=== PATIENT | female | born 1985 | race Two or more races ===

== ENCOUNTER 2016-12-18 20:05 | Inpatient (IN) | payer OTHER ==
[2016-12-18 20:28] VITALS: BMI 26.6
[2016-12-18 22:55] LABS: BASO % 0.2 % (0.0-2.0); EOS # 0.1 K/uL (0.0-0.7); EOS % 0.8 % (0.0-4.0); HEMATOCRIT 35.6 % (34.0-47.0); LYMPH # 1.8 K/uL (1.0-4.3); LYMPH % 15.9 % (20.0-40.0); MEAN CELL VOLUME 98.8 fl (81.0-99.0); MEAN CORPUSCULAR HEMOGLOBIN 33.2 pg (27.0-31.0); MEAN CORPUSCULAR HGB CONC 33.6 g/dL (33.0-37.0); MEAN PLATELET VOLUME 10.4 fl (7.2-11.7); MONO # 0.7 K/uL (0.0-0.8); MONO % 6.5 % (0.0-10.0); NEUT # 8.6 K/uL (1.8-7.0); NEUT % 76.6 % (50.0-75.0); NRBC % 0.1 % (0.0-0.0); RED CELL DISTRIBUTION WIDTH 13.4 % (11.5-14.5); WHITE BLOOD COUNT 11.3 K/uL (4.8-10.8)
[2016-12-18 23:21] VITALS: BP 121/68; PULSE 74; RESP 18; TEMP 97.7; O2SAT 100
--- NOTE | 2016-12-19 04:33 | OBHP ---
Datetime: 12/18/2016 21:00 IP Adm Impression: Term, intrauterine IP Admit Plan: Admit to unit; Initiate labor induction protocol Admit Comment, IP Provider: 31 yr at 40.1 wks GA presents to [facility] for IOL as recommended by MFM (see risk factors below). Denies vaginal bleeding, LOF, ctx's. + movements. Routine c are with Dr. Rincon. Patient has birthplan (please see chart), denies concerns or complaints at this jairo e. care/course: + Chlamydia (treated 04/2016); + Lyme disease (treated 08/2016), Pityriasis R osea, spouse had shingles (Oct 2015), Influenza vaccine given, GBS neg, Gc/Ch neg/neg, HepBsAg neg, H IV neg, Rubella IgG positive, RPR neg, MFM Wellbeing Assessment 12/12/16: BPP 8/8, recommend del cristian by EDC. Growth US 11/29/16: EFW 7lbs 0 oz. OBHx: none PMHx: none SocHx: denies Etoh, smoking drugs SurgHx: b/l foot wart removal Meds: none Allergies: NKDA PE: VSS, patient in no acute distress Cardiac: S1 S2 normal, no murmurs/rubs or gallops Lungs: CTABL Abd: gravid, nontender Ext: no edema Monitoring: FHR 120bpm, moderate variability 6-25bpm, accelerations 15x15, no decels A: IUP at 40.1 wks GA, IOL as recommended by MFM P: -Admit to labor and delivery -IV insertion, CBC, Type and Screen -Initiate induction of labor protocol -Continuous monitoring -Monitor labor progress Richelle Smith M.D. PGY1 OB Hospitalist note: This pt was seen and examined by me. Agree with above note. MAHNDO Pelvic Type - PN: Not Done Extremities - PN: Normal Abdomen - PN: Normal Back - PN: Normal Breast - PN: Not Done Lungs - PN: Normal Heart - PN: Normal Thyroid - PN: Normal Neurologic - PN: Normal HEENT - PN: Normal General - PN: Normal Presentation-Admit: Vertex FHR - Baseline A Provider: 120 Membranes, Provider: Intact Contraction Comments Provider: + Comments, ACOG Physical Exam: ROS: General: no weakness; no fatigue HEENT: no ALBERT; no visual dist CV: no palpitations; no no CP GI: noN/V no diarhea No epigastric pain; non radiating : no F/U/D MS: No joint pain Gestation - Est Wks by US: 40.1 Pool Provider: Negative IP Hx Assessment: The History has been Reviewed and is Current EGA AdmitDate IP: 40.1 Vital Signs Provider: Reviewed; Within Normal Limits IP Chief Complaint: Scheduled induction of labor NICHD Variability Prov Fetus A: Moderate 6-25bpm NICHD Accel Fetus A IP Provider: 15X15 FHR Category Provider Fetus A: Category I NICHD Decel Fetus A IP Provider: None Dilatation, Provider: 0 Effacement, Provider: 0 Station, Provider: high DTRs - PN: Normal
[2016-12-19] MEDS: Lactated Ringer's 1,000 ML IV SCH (08:05)
[2016-12-19] MEDS ORDERED: Dextrose 5%/Lactated Ringer's 1,000 ML IV SCH (22:30)
[2016-12-19] MEDS ORDERED: Oxytocin 30 units/LR 500ML 500 ML IV ONE (23:49)
[2016-12-20] MEDS ORDERED: Bupivacaine HCl 0.25% PF (10 ml) Inj ONE ×2 (01:51→13:40)
[2016-12-20] MEDS ORDERED: Fentanyl/Bupivacaine HCl 250 ML EPI ONE (01:51)
--- NOTE | 2016-12-20 08:25 | OBPN ---
Datetime: 12/20/2016 06:33 Membranes, Provider: Ruptured Amniotic Fluid Color, Provider: Clear Contraction Comments Provider: q4-5 FHR - Baseline A Provider: 130 IP Progress Note Comment: s: comfortable with epidural p: arom. expectant vd Vital Signs Provider: Within Normal Limits FHR Category Provider Fetus A: Category I NICHD Variability Prov Fetus A: Moderate 6-25bpm Dilatation, Provider: 4-5 Effacement, Provider: 100 Station, Provider: -1 NICHD Decel Fetus A IP Provider: None Datetime: 12/19/2016 08:49 IP Progress Impression: Reassuring heart rate IP Informed Consent Obtain: Induction of Labor IP Progress Plan: Induction; Cervical Ripening Presentation-Admit: Vertex NICHD Accel Fetus A IP Provider: 15X15 Datetime: 12/18/2016 21:00 Pool Provider: Negative Gestation - Est Wks by US: 40.1
[2016-12-20] MEDS: Lactated Ringer's 1,000 ML IV SCH (08:41)
[2016-12-20] MEDS ORDERED: Lactated Ringer's 1,000 ML IV SCH ×2 (13:15→14:18)
[2016-12-20] MEDS ORDERED: Lidocaine 2% PF (10 ml) Amp ONE ×2 (13:45→15:44)
[2016-12-20] MEDS ORDERED: EPINEPHrine 1 mg/ml (1:1000) Inj ONE (13:46)
[2016-12-20] MEDS ORDERED: ePHEDrine 50 mg/ml Inj ONE (14:06)
[2016-12-20] MEDS ORDERED: Phenylephrine 10 mg/ml Inj ONE (14:06)
--- NOTE | 2016-12-20 15:23 | OBPN ---
Datetime: 12/20/2016 15:17 IP Progress Impression: Arrest of dilatation/descent IP Informed Consent Obtain: Section Delivery; Risks, Benefits and Alternatives Discussed IP Procedures: Sterile Vag Exam IP Progress Plan: Deliver- Section Membranes, Provider: Ruptured Amniotic Fluid Color, Provider: Meconium, Light Contraction Comments Provider: Q3-4 FHR - Baseline A Provider: 140 IP Progress Note Comment: 31 yo G1 at 40+3 wks w/ arrest of descent at -1 station Discussed w/ pt and her Consents signed. All questions answered. NICHD Accel Fetus A IP Provider: 15X15 NICHD Variability Prov Fetus A: Moderate 6-25bpm Dilatation, Provider: 10 Effacement, Provider: 100 Station, Provider: -1 NICHD Decel Fetus A IP Provider: None
[2016-12-20] MEDS ORDERED: Morphine 1 mg/ml preservative-free Inj(Duramorph) ONE (15:44)
[2016-12-20] MEDS ORDERED: Oxytocin 30 units/LR 500ML 500 ML IV ONE (15:47)
[2016-12-20] MEDS ORDERED: Oxycodone/Acetaminophen 5/325 mg Tab PO PRN ×2 (16:46→17:03)
--- NOTE | 2016-12-20 17:00 | OBDS ---
DELIVERY PERSONNEL Delivery Doctor: Jean-Claude Baker MD Construction Pit Worker: Wily Ray RN Anesthesiologist: Bobby Medel MD MATERNAL INFORMATION Delivery Anesthesia: Epidural Provider Comments: Pre-op dx: 31 yo G1 at 40+3 wks w/ arrest of descent at -1 station Post-op dx: Same Procedure: Primary low transverse section Surgeon: Olivia Assistant Curator: Dr. Rodriguez, the hospitalist Anesthesiologist: Dr. Campbell Anesthesia: Epidural Findings: Viable male delivered through thin meconium at 15:33. Apgars 9 and 9. Wt 4070 gm s, 9lbs. Nl appearing uterus, tubes, and ovaries. LABOR SUMMARY EDC: 12/17/2016 00:00 No. Babies in Womb: 1 Attempted: No Labor Anesthesia: Epidural LABOR INFORMATION Reason for Induction: Postterm Onset of Labor: 12/19/2016 17:00 Complete Dilatation: 12/20/2016 08:47 Cervical Ripening Agents: Cytotec @ Oxytocin: Augmentation Group B Beta Strep: Negative Antibiotics # of Doses: ancef one dose Antibiotics Time of Last Dose: 15:15 ancef 2grams Steroids Given: None Reason Steroids Not Administered: Not Applicable MEMBRANES Membranes Rupture Method: Artificial Rupture of Membranes: 12/20/2016 05:20 Amniotic Fluid Color: Clear Amniotic Fluid Amount: Moderate Amniotic Fluid Odor: Normal STAGES OF LABOR Stage 1 hrs: 15 Stage 1 min: 47 CSECTION DELIVERY CSection Urgency: Elective CSection Incidence: Primary Labor: Labor Elective: Elective CSection Incision: Lower Uterine Transverse BABY A INFORMATION Born in Route : No : N/A PRESENTATION/POSITION BABY A Presentation: Cephalic INFANT INFORMATION BABY A Gestational Age at Delivery: 40.3 IDENTIFICATION/MEDS BABY A ID Band Number: [id number]
--- NOTE | 2016-12-20 17:44 | OP ---
PROCEDURE DATE: 12/20/2016 PREOPERATIVE DIAGNOSIS: This is a 31-year-old G1 at 40 weeks and 3 days with arrest of descent at -1 station. POSTOPERATIVE DIAGNOSIS: This is a 31-year-old G1 at 40 weeks and 3 days with arrest of descent at -1 station. PROCEDURE: Primary low transverse section. SURGEON: Alejo Baker MD REGULATORY AFFAIRS SPECIALIST: Dr. Rodriguez, the hospitalist. Dr. Rodriguez was the surgical endoscopist and participated in the surgery for the entire duration of the case. He helped create exposure. He also helped maintain hemostasis, operated throughout the case on the side of the patient that was across from him and assisted in the delivery of the by applying fundal pressure. This case could not have been completed without his assistance. ANESTHESIOLOGIST: Dr. Campbell ANESTHESIA: Epidural. FINDINGS: Viable male infant delivered through thin meconium at 1533. Apgars 9 and 9 at 1 and 5 minutes respectively. The weight was 4070 grams or 9 pounds. Normal appearing uterus, tubes and ovaries. ESTIMATED BLOOD LOSS: About 700 mL. COMPLICATIONS: None. DESCRIPTION OF PROCEDURE: The patient was taken to the operating room where the epidural anesthesia was bolused. She was prepped and draped in the normal sterile fashion in the dorsal supine position with a leftward tilt. The time- out was done. The epidural was tested and found to be adequate. A Pfannenstiel skin incision was then made with the scalpel and carried through to the underlying layer of fascia with the Bovie. The fascia was incised in the midline. The incision was extended laterally with the Bovie over a Chani. The inferior aspect of the fascial incision was then grasped with the Magalie clamps, elevated, and the underlying rectus muscles dissected off bluntly and with the Bovie. Attention was then turned to the superior aspect of this incision, which in a similar fashion was grasped, tented up with the Magalie clamps and the rectus muscles dissected off bluntly and with the Bovie. The rectus muscles were then in the midline. The peritoneum was identified, tented up and entered sharply with the Metzenbaum scissors. The peritoneal incision was then extended superiorly and inferiorly with good visualization of the bladder. The bladder blade was then inserted and the vesicouterine peritoneum was identified, grasped with the pickups and entered sharply with the Metzenbaum scissors. This incision was then extended laterally and the bladder flap was created digitally. The bladder blade was then reinserted and the lower uterine segment was incised in a transverse fashion with the scalpel. The uterine incision was extended laterally digitally. The bladder blade was removed and the 's head delivered atraumatically. The nose and mouth were suctioned with the bulb suction. The cord was clamped and cut. The was handed off to the waiting candy separator hard. Cord gases were sent. Cord blood was then collected. The placenta was then delivered as the uterus was massaged. The uterus was then exteriorized and cleared of all clots and debris with a dry sponge curettage. The uterine incision was then repaired with 0 Vicryl in a running locked fashion. A second layer of the same suture was used in an imbricating fashion for hemostasis and to reinforce the incision. The abdomen was then well irrigated. The uterus was then returned to the abdomen. The gutters were cleared of all clots. The uterine incision was reexamined and found to be hemostatic. The peritoneum was then closed with 2-0 chromic. The fascia was then reapproximated with 0 Vicryl in a running fashion. The subcutaneous fat was well irrigated. The small space of the fat was then closed with a running 2-0 plain gut suture. The skin was then closed in a subcuticular fashion with 4-0 Monocryl. The patient tolerated the procedure well. Sponge, lap, and needle counts were correct. The patient received 2 grams of Ancef prior to the procedure. The patient was taken to the recovery room in stable condition. Alejo Baker MD cc: [id number] TT: 12/20/2016 17:44:01 en MTDD
[2016-12-20] MEDS: Simethicone 80 mg Chewtab PO SCH (23:30)
[2016-12-21] MEDS: Simethicone 80 mg Chewtab PO SCH ×4 (05:00→21:55)
[2016-12-21 08:02] LABS: BASO % 0.2 % (0.0-2.0); EOS % 0.1 % (0.0-4.0); HEMATOCRIT 32.7 % (34.0-47.0); LYMPH # 1.4 K/uL (1.0-4.3); LYMPH % 7.5 % (20.0-40.0); MEAN CELL VOLUME 100.8 fl (81.0-99.0); MEAN CORPUSCULAR HEMOGLOBIN 33.1 pg (27.0-31.0); MEAN CORPUSCULAR HGB CONC 32.8 g/dL (33.0-37.0); MEAN PLATELET VOLUME 10.3 fl (7.2-11.7); MONO # 0.8 K/uL (0.0-0.8); MONO % 4.1 % (0.0-10.0); NEUT # 16.6 K/uL (1.8-7.0); NEUT % 88.1 % (50.0-75.0); PLATELET COUNT 140 K/uL (130-400); RED CELL DISTRIBUTION WIDTH 13.6 % (11.5-14.5); WHITE BLOOD COUNT 18.8 K/uL (4.8-10.8)
--- NOTE | 2016-12-21 08:23 | OBPPN ---
Datetime: 12/21/2016 08:19 PP Pain Prov: Within normal limits PP Nausea Prov: Denies PP Flatus Prov: No PP BM Prov: No PP Abdomen/Uterus Prov: Normal PP Lochia Prov: Normal PP Extremities Prov: Normal PP C/S Incision Prov: Normal PP Progress Prov: Normal PP Comments Phys Exam Prov: Incision w/ bandage in place PP Impression Prov: Normal progression PP Plan Prov: Continue present management PP Progress Note Prov: POD 1 s/p Primary LTCS for arrest of descent, breast and bottle feeding, reji vargas Encourage out of bed Advance diet to regular Vital Signs Provider PP: Reviewed
[2016-12-21] MEDS: Oxycodone/Acetaminophen 5/325 mg Tab PO PRN (08:52)
[2016-12-21 10:34] LABS: NEUTROPHIL 85 % (42-75); TOTAL CELLS COUNTED 100
[2016-12-22] MEDS: Simethicone 80 mg Chewtab PO SCH ×4 (06:44→21:57)
[2016-12-22] MEDS: Oxycodone/Acetaminophen 5/325 mg Tab PO PRN ×2 (08:11→19:45)
--- NOTE | 2016-12-22 10:25 | OBPPN ---
Datetime: 12/22/2016 08:34 PP Pain Prov: Within normal limits PP Flatus Prov: Yes PP BM Prov: No PP Abdomen/Uterus Prov: Normal PP Lochia Prov: Normal PP Extremities Prov: Normal PP C/S Incision Prov: Normal PP Progress Prov: Normal PP Comments Phys Exam Prov: Incision intact w/ steri strips PP Impression Prov: Normal progression PP Plan Prov: Continue present management PP Progress Note Prov: POD 2 s/p primary LTCS for arrest of descent, doing well, breast and bottle f eeding Continue current management Vital Signs Provider PP: Reviewed
[2016-12-23] MEDS: Simethicone 80 mg Chewtab PO SCH ×4 (04:55→21:31)
[2016-12-23] MEDS: Oxycodone/Acetaminophen 5/325 mg Tab PO PRN (05:11)
--- NOTE | 2016-12-23 09:04 | OBPPN ---
Datetime: 12/23/2016 08:53 PP Lochia Prov: Normal PP Vulva/Perineum Prov: Normal PP Extremities Prov: Normal PP C/S Incision Prov: Normal PP Progress Prov: Not Applicable PP Comments Phys Exam Prov: Incision intact w/ steri strips PP Impression Prov: Normal progression PP Progress Note Prov: POD 3 s/p Primary LTCS, bottle feeding Pt c/o right thigh weakness Will order anesthesia consult Vital Signs Provider PP: Reviewed; Within Normal Limits
--- NOTE | 2016-12-23 10:50 | CP.PCM.PN ---
Subjective - Date & Time of Evaluation Date of Evaluation: 12/23/16 Time of Evaluation: 09:30 - Subjective Subjective: Anesthesiology Note: The undersigned was called to evaluate this pleasant 31 year old female who 3 days ago was admitted because of labor and then under went section, for weakness of right leg. On examination she reported weakness of the right leg and unable to feel pain on the mer - medial thigh while pinching herself. She also reports the same feeling on the left side but to a lesser degree. She also stated that her right leg will almost "give up"on trying to stand up. Examination revealed decreased sensation on the the mer medial thigh ,right greater than the left. The same is true with motor weakness. Assessment- Possible Bilateral Femoral nerve injury Plan- Neurology Evaluation Objective - Vital Signs/Intake and Output Vital Signs (last 24 hours): Temp Pulse Resp BP Pulse Ox 97.7 F 74 18 121/68 100 12/18/16 22:00 12/18/16 22:00 12/18/16 22:00 12/18/16 22:00 12/18/16 22:00 - Medications Medications: Current Medications Docusate Sodium (Colace) 100 mg PO BID [facility] Last Admin: 12/23/16 09:10 Dose: 100 mg Ibuprofen (Motrin Tab) 600 mg PO Q4H PRN PRN Reason: Pain, Mild (1-3) Last Admin: 12/23/16 09:12 Dose: 600 mg Oxycodone/Acetaminophen (Percocet 5/325 Mg Tab) 1 tab PO Q4 PRN PRN Reason: Pain, moderate (4-7) Stop: 12/23/16 16:47 Last Admin: 12/23/16 05:11 Dose: 1 tab Oxycodone/Acetaminophen (Percocet 5/325 Mg Tab) 2 tab PO Q4 PRN PRN Reason: Pain, severe (8-10) Stop: 12/23/16 16:47 Oxycodone/Acetaminophen (Percocet 5/325 Mg Tab) 1 tab PO Q4 PRN PRN Reason: For PCEA Breakthrough Pain Stop: 12/23/16 17:04 Sennosides (Senokot Tab) 17.2 mg PO [facility] Last Admin: 12/22/16 21:57 Dose: 17.2 mg Simethicone (Mylicon Chew Tab) 80 mg PO Q6 [facility] Last Admin: 12/23/16 09:11 Dose: 80 mg - Labs Labs: 12/21/16 07:10
[2016-12-24] MEDS: Simethicone 80 mg Chewtab PO SCH ×3 (04:54→16:07)
--- NOTE | 2016-12-24 12:05 | OBPPN ---
Datetime: 12/24/2016 12:03 PP Pain Prov: Within normal limits PP Nausea Prov: Denies PP Flatus Prov: Yes PP Breasts Prov: Normal PP Heart Prov: Normal PP Lungs Prov: Normal PP Abdomen/Uterus Prov: Normal PP Lochia Prov: Normal PP Vulva/Perineum Prov: Normal PP CVA Tenderness Prov: Normal PP Extremities Prov: Normal PP Comments Phys Exam Prov: Fundus firm under umbilicus PP Impression Prov: Normal progression PP Plan Prov: Discharge PP Progress Note Prov: Patient denies CP, no SOB, no N/V, tolerating PO diet, voiding well, mild loc hia, ambulating/voiding well, abdominal pain tolerable with meds, +flatus, +BM, pt able to ambulate w ith minimum difficulty, has some decreased sensation A/P POD #4 1. Waiting for neuro consultation and then patient to be discharged 2. Discharge instructions reviewed with patient 3. Discharge patient IP PP Procedures: None Vital Signs Provider PP: Reviewed; Within Normal Limits
--- NOTE | 2016-12-24 12:05 | OBDCSUM ---
Datetime: 12/24/2016 12:04 Discharged to, Provider: Home Follow up at, Provider: OB Disch Instr Activity: Normal activity Disch Instr Diet: Regular Discharge Instructions, Provider: Routine instructions given Discharge Diagnosis, Provider: Term Delivered Discharge Time: 12/24/2016 12:04 Follow up in weeks, Provider: 1 wk and 6 wks Disch Referrals: None Contraception discussed, Prov: Yes Disch Activity Restrictions: No exercising; No sexual activity; Nothing in vagina - [place], vieira shannon luna Discharge Comment, Provider: Return to hospital if increased bleeding, pain, temp
--- NOTE | 2016-12-24 22:28 | CON ---
DATE: 12/24/2016 REQUESTING PHYSICIAN: Cane Flume Chute Operator. REASON FOR CONSULTATION: After labor felt weakness of both thighs and she had difficulty flexing the thighs and difficulty standing up. The right side was much more involved. HISTORY OF PRESENT ILLNESS: The patient is a 31-year-old female originally from [facility] and she is ac companied by her who is also a Frenchman and she gave after many hours attempt of labor and then finally she was found to have difficulty of progress of labor and she was delivered by a C- section. After the labor, the patient could not stand up on her feet for 1-day and then she was able to walk yesterday only or the day before and before that she was having tingling and numbness and th e right side was much more involved. Currently she has pain in both inguinal areas and the right elmo e is much more involved and the patient feels difficulty walking and she is having difficulty on the right side as well. PAST MEDICAL HISTORY: Is significant for no problems. SOCIAL HISTORY: Denies drinking or smoking. OBSTETRICAL HISTORY: She is a 1, para 1; this time is the para 1, and she was originally gra yue 1, para 0. REVIEW OF SYSTEMS: No high blood pressure, no gestational diabetes, no history of trauma. MEDICATIONS: She is on no medications. ALLERGIES: No known drug allergies. FAMILY HISTORY: Nonsignificant. PHYSICAL EXAMINATION: VITAL SIGNS: Normal. Temperature was 99.7, pulse 74, blood pressure 121/68, respiratory rate 18, O2 saturation 100%. MENTAL STATUS: Awake, alert, oriented. Fluent coherent speech. Speaks mainly Taiwanese. Normal memor y x 3. Very intelligent lady. She is a housewife. The cranial nerves from II-XII did not show any deficits. Her pupils were equal, reactive to light and accommodation. Extraocular muscles were norm al. There was no facial asymmetry. The tongue was central. She was able to shrug her shoulders nor naomi. She was able to swallow normally. MOTOR: Showed normal tone, power, muscle bulk except in the right thigh where she had difficulty fle leeanna the right thigh. ABDOMEN: She had difficulty with tenderness on the right aspect of the lower right quadrant of the a bdomen, which showed tenderness and she had mild tenderness also on the same left lower quadrant of t he abdomen, but it seems more related to the bones and to the joints, than having any problems inside of the abdomen itself. DEEP TENDON REFLEXES: Deep tendon reflexes were 0/4 in the right knee and it was 2/4 in the left kne e and it was 2/4 in the right ankle and 2/4 in the left ankle and it was 2/4 in the right upper extre mity and left upper extremity and all reflexes checked including the biceps, the brachial radialis an d the triceps. SENSORY: Showed some reduced sensation in the right thigh and the sensation in the left thigh was no rmal. CEREBELLAR: Showed normal finger-nose test and [id number] test was not possible on the right side and on the left side also was difficult to perform due to her pain bilaterally and the pain was more on the right side. GAIT: The patient was unable to tandem walk. 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 The patient is able to take care of herself. At this point, I recommend to have physical therapy if the patient would be interested; however, she is able to make it without physical therapy at this point and she might have it as an outpatient. Th e patient also would benefit from motor exercises after discharge once her wound heals and she will b e cleared by obstetrics to go to the swimming pool. She was advised to avoid the difficult ocean and the difficult sea as she might have some problems while swimming. The patient will be followed as a n outpatient. Dear , many thanks for asking me to see this patient. Should you have any questions, please do no t hesitate to contact me. Sincerely, Maritza Demarco MD cc: [id number] TT: 12/24/2016 22:28:00 Confirmation # [id number] Dictation # [id number] marjorie
== END 2016-12-24 20:00 | disposition home or self-care (01) | DRG 766 ==
LOC: H.EROB2 20:05 → H.L&D 21:29 → H.OB/GYN 12-20 20:15
PROVIDERS: ADMIT Obstetrics & Gynecology; ATTEND Obstetrics & Gynecology
PROC: 4A1HXCZ Monitoring of Products of Conception, Cardiac Rate, External Approach (ICD-10-PCS; principal; 2016-12-18)
PROC: 10D00Z1 Extraction of Products of Conception, Low, Open Approach (ICD-10-PCS; 2016-12-20)
DX: O62.0 Primary inadequate contractions (principal); O48.0 Post-term pregnancy; O77.0 Labor and delivery complicated by meconium in amniotic fluid; L42 Pityriasis rosea; Z3A.40 40 weeks gestation of pregnancy; Z37.0 Single live birth